=== PATIENT | male | born 1945 | race Caucasian/White ===

== ENCOUNTER → 2019-10-29 13:48 | Outpatient (BNVA) | payer MEDICARE, OTHER, SELFPAY | PROVIDERS: Family Provider Nurse Practitioner Family; PCP Physician Assistant Medical; Visit Provider Otolaryngology | DX: L98.9 Disorder of the skin and subcutaneous tissue, unspecified (principal) | CPT/HCPCS: 99204; 99214 ==

== ENCOUNTER 2020-11-21 23:28 | Emergency (ER) | payer MEDICARE, SELFPAY ==
[2020-11-21 23:33] VITALS: BP 173/80; PULSE 74; RESP 18; TEMP 36.7; O2SAT 97; BMI 28.8
--- NOTE | 2020-11-21 23:39 | W.ED.GENADLT ---
HPI - General Adult General: Chief complaint: General Medical Stated complaint: sore throat Time Seen by Provider: 11/21/20 23:37 History of Present Illness: HPI narrative: 75-year-old male patient presents to the emergency department with onset of sore throat x3 days. He reports throat has worsened, now with raspy voice. He states throat feels scratchy and sore. He also reports cough and congestion x3 days. States coughing up white-yellow sputum. Reports similar symptoms last year. was diagnosed with bronchitis at that time. He denies fever chills, nausea or vomiting. He reports using Mucinex DM and throat lozenges to help with cough. had cardiac ablation approximately 3 weeks ago, required intubation due to length of procedure. has been doing very well post procedure. Location: chest Radiation: non-radiation Severity: mild Associated symptoms: Reports cough; Deny chest pain, diaphoresis, dyspnea, headache(s), nausea, rash, palpitations or vomiting Review of Systems General: Reports: 10 or more systems reviewed and unremarkable except in HPI and below Const: Denies: fever(s), chills or diaphoresis Eyes: Denies: blurry vision or eye redness ENMT: Reports: throat pain, hoarseness, nasal discharge and nasal congestion; Denies: dental pain or disequilibrium Card: Denies: chest pain, palpitations, irregular heart rhythm, swelling of feet/ankles, lightheadedness, dyspnea on exertion, orthopnea or leg pain with exertion Resp: Reports: productive cough, change in phlegm color and chest congestion; Denies: dyspnea, non-productive cough or wheezing GI: Denies: abdominal pain, nausea or vomiting : Denies: dysuria Musc: Denies: neck pain, back pain, joint pain or joint stiffness Skin/Breast: Denies: rash or pruritus Neuro: Denies: headache(s), weakness in extremities or behavioral changes Psych: Denies: anxiety, depression, sleeping more or hopelessness Brandan/Lymph: Denies: easy bruising PFSH ED PFSH: Medical History Atrial fibrillation History of stroke Surgical History History of appendectomy Family History Mother Cancer Diabetes Father Cancer Heart disease Social History Smoking and tobacco status: never smoked Alcohol intake: never Physical Exam Const: COMMON NORMALS: no acute distress, patient oriented x3, healthy appearing and alert GENERAL APPEARANCE: cooperative, comfortable and well hydrated HENMT: COMMON NORMALS: normocephalic, atraumatic, external ears normal, EAC's normal, Normal external nose present and moist oral mucous membranes HEAD & SCALP: normocephalic and atraumatic FACE & SINUS: normal facial exam, sinuses nontender and face symmetric; no abrasion, no ecchymosis and no erythema NOSE: Normal external nose present EXTERNAL EAR: Yes external ears normal EXTERNAL AUDITORY CANAL: EAC's normal TYMPANIC MEMBRANE: TM normal on the right and TM abnormal TM laterality: left Details: effusion, erythematous and loss of landmarks MOUTH: Normal oral and palatal mucosa present, lip normal, tongue normal and other (Vocal hoarseness noted); no drooling and no muffled voice THROAT: uvula midline, posterior oropharynx abnormal erythema and exudates and postnasal drainage Eye: COMMON NORMALS: Equal, round and reactive pupils present and EOMs intact bilaterally GENERAL EYE: appearance normal, both eyes and all related structures PUPIL: Yes Equal, round and reactive pupils present Neck/C-Spine: COMMON NORMALS: full ROM and no lymphadenopathy GENERAL: Yes normal visual inspection and Yes trachea midline CERVICAL SPINE: Yes cervical ROM normal Lymph: LYMPHATIC: no lymphadenopathy noted Chest: COMMONS NORMALS: normal inspection of the chest and normal palpation of entire chest wall Resp: COMMON NORMALS: normal respiratory effort, No retractions, No use of accessory muscles and clear to auscultation bilaterally EFFORT & INSPECTION: Yes able to speak in complete sentences, No pursed lip breathing, No labored, No Actively coughing and No audible wheezes AUSCULTATION: clear to auscultation bilaterally Cardio: COMMON NORMALS: regular rate, regular rhythm, S1 normal heart sound present, S2 normal heart sound present and Peripheral pulses 2+ throughout RATE: regular rate RHYTHM: regular rhythm HEART SOUNDS: S1 normal heart sound present and S2 normal heart sound present PERIPHERAL PULSES: Peripheral pulses 2+ throughout GI: COMMON NORMALS: Soft to palpation and non-tender INSPECTION: Yes normal to inspection PALPATION: Yes Soft to palpation : COMMON NORMALS: Yes no CVA tenderness BLADDER/KIDNEY EXAM: Yes no CVA tenderness Back/Pelvis: COMMON NORMALS: no CVA tenderness and thoracic and lumbar spine normal to inspection Extremity: COMMON NORMALS: normal to inspection, capillary refill normal, no clubbing, cyanosis or edema and no pedal edema GENERAL: Yes normal exam except as noted Neuro: COMMON NORMALS: patient oriented x3 and no focal motor deficits SENSORIUM/ORIENTATION: Yes alert Psych: COMMON NORMALS: mental status grossly normal, Normal thought process present and cooperative ACTIVITY/MOTOR BEHAVIOR: Yes appropriate eye contact THOUGHT PROCESS: Normal thought process present Skin: COMMON NORMALS: no rashes or lesions noted and turgor normal GENERAL SKIN EXAM: no rashes or lesions noted and turgor normal Course Vital Signs: Vital signs: Vital Signs Temperature 98.0 F 11/21/20 23:33 Pulse Rate 70 11/21/20 23:44 Respiratory Rate 18 11/21/20 23:44 Blood Pressure 175/102 11/21/20 23:44 Pulse Oximetry 95 11/21/20 23:44 MDM - General Adult MDM Narrative: Medical decision making narrative: 75-year-old male patient presents to the emergency department with onset of sore throat x3 days. He also presents with cough congestion. He reports similar symptoms approximately 1 year ago and requests antibiotics. He denies shortness of breath, he declined Tylenol here in the ED as he has some at home. Chest x-ray did not reveal acute abnormalities. He did not exhibit congestive heart failure symptoms. Prescription of Omnicef was provided as interaction between azithromycin and sotalol can cause QT prolongation and arrhythmia. COVID-19 testing completed as patient would be candidate for monoclonal antibody treatment. Patient agrees with testing, results to be called to him. He declined need for steroids as steroids causes blood pressure to be extremely elevated and will not take them. Patient had postnasal drip upon exam. Erythema of the throat appreciated along with left tympanic membrane effusion. Nasal saline irrigation prescribed. Oxygen saturation remained 95 to 100% on room air during his stay. Lab Data: Labs: Lab Results 11/21/20 Range/Units 23:45 Group A Strep Rapi d Negative (Negative) Discharge Plan Discharge Patient Disposition: Home Clinical Impression: Suspected 2019 novel coronavirus infection, Bronchitis Pharyngitis Qualifiers: Pharyngitis/tonsillitis etiology: other specified organisms Qualified Code(s): J02.8 - Acute pharyngitis due to other specified organisms Condition: Stable Prescriptions: New cefdinir 300 mg capsule 300 mg PO BID 7 Days Qty: 14 RF: 0 Saline Nasal Mist 0.65 % aerosol,spray 2 spray intranasal Q1H PRN (Reason: nasal congestion) Qty: 50 RF: 0 benzonatate 200 mg capsule 200 mg PO TID PRN (Reason: cough) Qty: 20 RF: 0 No Action hydrochlorothiazide 25 mg tablet 25 mg PO QAM RF: 0 lisinopril 5 mg tablet 5 mg PO DAILY RF: 0 ezetimibe [Zetia] 10 mg tablet 10 mg PO DAILY RF: 0 Eliquis 5 mg tablet 5 mg PO BID RF: 0 omeprazole 20 mg capsule,delayed release(DR/EC) 20 mg PO DAILY RF: 0 diltiazem HCl [Cardizem] 120 mg tablet 120 mg PO DAILY RF: 0 aspirin [Adult Aspirin Regimen] 81 mg tablet,delayed release (DR/EC) 81 mg PO DAILY RF: 0 sotalol 80 mg tablet 80 mg PO DAILY RF: 0 Discharge Orders: Discharge ED (Routine); Ordered 11/22/20 Ordered By: Madyson Wade Referrals: Juan Galvan [Primary Care Provider] - Discharge Diet: GI Soft Discharge Activity: Resume usual activity Patient Instructions: Pharyngitis (ED), Acute Bronchitis (ED) Activity Restrictions/Additional Instructions: Take antibiotics until all gone Warm salt water gargle several times daily to help with pain Eat soft foods to help soothe throat, ice cream, popsicles can help with pain as well Return the emergency department if you develop difficulty breathing, inability to catch your breath or other concerning symptoms Take Tylenol as needed for pain COVID-19 results will be called to you, remain in quarantine until results are known, if positive, [facility] will be contacting you with further instruction. Coding Level of Care Code ED Database Marketing Manager for [employer] Exam Comprehensive
[2020-11-21 23:44] VITALS: BP 175/102; PULSE 70; RESP 18; O2SAT 95
--- NOTE | 2020-11-21 23:48 | XRR_ITS ---
PROCEDURE INFORMATION: Exam: XR Chest, 1 View Exam date and time: 11/21/2020 11:55 PM Age: 75 years old Clinical indication: Cough; Additional info: Cough/congestion TECHNIQUE: Imaging protocol: XR of the chest Views: 1 view. COMPARISON: CR Chest 1 [place] [id number] 07/30/2016 1:37 AM FINDINGS: Lungs: There are increased peribronchial markings present bilaterally and some strandy opacity seen in left lung base, findings that likely represents a mild bilateral bronchitis and left basilar atelectasis. Pleural spaces: Unremarkable. No pleural effusion. No pneumothorax. Heart/Mediastinum: Unremarkable. No cardiomegaly. Bones/joints: Unremarkable. XR/XR chest 1V portable [id number] IMPRESSION: Probable mild bronchitis with left basilar atelectasis.
[2020-11-21 23:59] LABS: Rapid Strep A Test Negative (Negative)
[2020-11-22 01:07] VITALS: BP 160/88; PULSE 69; RESP 17; O2SAT 96
[2020-11-23 16:01] LABS: Coronavirus Test Green County Not Detected
--- NOTE | 2020-11-24 08:13 | PC.NURSE ---
pt called and given the results of his covid test
== END 2020-11-22 01:04 | disposition home or self-care (01) ==
PROVIDERS: Emergency Provider Nurse Practitioner Family; PCP Physician Assistant Medical
DX: J02.8 Acute pharyngitis due to other specified organisms (principal); J40 Bronchitis, not specified as acute or chronic; Z20.822 Contact with and (suspected) exposure to COVID-19; Z79.01 Long term (current) use of anticoagulants; Z79.82 Long term (current) use of aspirin; I48.91 Unspecified atrial fibrillation
CPT/HCPCS: 12345; 71045; 87081; 87635; 87880; 99281; 99283